=== PATIENT | male | born 1975 | race Hispanic/Latino ===

== ENCOUNTER 2025-02-12 17:38 | Emergency (ER) | payer OTHER ==
[~2025-02-12] VITALS: Ht 172.7 cm; Wt 94.9 kg
[2025-02-12] MEDS ORDERED: NOXI1TAB PO (17:48)
[2025-02-12] MEDS ORDERED: JARD1TAB PO (17:48)
[2025-02-12] MEDS ORDERED: METF10004 PO (17:48)
[2025-02-12] MEDS ORDERED: ATOR1TAB19 PO (17:55)
[2025-02-12 20:16] VITALS: BP 115/79; TEMP 96.4; O2SAT 98
== END 2025-02-12 20:33 | disposition home or self-care (01) ==
LOC: M ED 17:38
DX: T18.9XXA Foreign body of alimentary tract, part unspecified, initial encounter (principal); E78.5 Hyperlipidemia, unspecified; E11.9 Type 2 diabetes mellitus without complications; Z79.4 Long term (current) use of insulin; Z79.84 Long term (current) use of oral hypoglycemic drugs; Z79.899 Other long term (current) drug therapy